=== PATIENT | female | born 1960 | race Asian ===

== ENCOUNTER 2018-11-17 06:18 | Day surgery (SDC) | payer OTHER ==
[~2018-11-17] VITALS: Ht 160 cm; Wt 47.3 kg
[2018-11-17 07:38] VITALS: BP 112/69; PULSE 52; RESP 12
[2018-11-17] MEDS ORDERED: OMEPRAZOLE (07:41)
[2018-11-17] MEDS ORDERED: IBUPROFEN (07:41)
[2018-11-17 08:26] VITALS: Ht 160 cm; Wt 47.3 kg
[2018-11-17] MEDS ORDERED: FENTAnyl 50 MCG/ML VIAL ONE (08:55)
[2018-11-17] MEDS ORDERED: MIDAZOLAM 1 MG/ML 2 ML INJ ONE ×2 (08:55)
[2018-11-17 09:25] VITALS: BP 97/63; PULSE 52; RESP 16
== END 2018-11-17 13:55 | disposition home or self-care (01) ==
LOC: GIL 06:18
PROVIDERS: ATTEND Internal Medicine Gastroenterology
DX: D12.5 Benign neoplasm of sigmoid colon (principal); K64.8 Other hemorrhoids
CPT/HCPCS: 45380; 88305; J2250; J3010; Z7610